=== PATIENT | male | born 2000 | race Caucasian/White ===

== ENCOUNTER 2022-08-30 21:29 | Inpatient (IN) | payer BC, OTHER ==
[2022-08-30 21:58] VITALS: BMI 29.0
[2022-08-30] MEDS ORDERED: METOPROLOL TARTRATE 25 MG TABLET (FP) PO ONE (22:14)
[2022-08-30] MEDS ORDERED: P-EPHED 60MG/TRIPROLIDI 2.5MG TABLET PO PRN (22:15)
[2022-08-30] MEDS ORDERED: NICOTINE 10 MG CARTRIDGE (INHALER) IH PRN (22:15)
[2022-08-30] MEDS ORDERED: POLYETHYLENE GLYCOL (HEALTHYLAX) 3350 17 GM PACKET PO PRN (22:15)
[2022-08-30] MEDS ORDERED: BENZOCAINE/MENTHOL (CHLORASEPTIC ) LOZENGE MM PRN (22:15)
[2022-08-30] MEDS ORDERED: LOPERAMIDE HCL 2 MG CAPSULE PO PRN (22:15)
[2022-08-30] MEDS ORDERED: MELATONIN 5 MG TABLETS PO PRN (22:15)
[2022-08-30] MEDS ORDERED: BISMUTH SUBSALICYLATE 524 MG/30 ML PO PRN (22:15)
[2022-08-30] MEDS ORDERED: ONDANSETRON *ODT* 4 MG TABLET SL PRN (22:15)
[2022-08-30] MEDS ORDERED: DICYCLOMINE HCL 10 MG CAPSULE PO PRN (22:15)
[2022-08-30] MEDS ORDERED: hydrOXYzine PAMOATE 25 MG CAPSULE (FP) PO PRN (22:15)
[2022-08-30] MEDS ORDERED: IBUPROFEN 400 MG TABLET (FP) PO PRN (22:15)
[2022-08-30] MEDS ORDERED: guaiFENesin 600 MG TABLET.ER (FP) PO PRN (22:15)
[2022-08-30] MEDS ORDERED: IBUPROFEN 600 MG TABLET (FP) PO PRN (22:15)
[2022-08-30] MEDS ORDERED: MAGNESIUM HYDROX 2400MG/30ML ORAL SUSPENSION 30 ML CUP PO PRN (22:15)
[2022-08-30] MEDS ORDERED: MAG HYDROX/AL HYDROX/SIMETH 30 ML UNIT-DOSE CUP PO PRN (22:15)
[2022-08-30] MEDS ORDERED: BENZONATATE 200 MG CAPSULE PO PRN (22:15)
[2022-08-30] MEDS ORDERED: ACETAMINOPHEN 325 MG TABLET (FP) PO PRN (22:15)
[2022-08-30] MEDS ORDERED: diazePAM 5 MG TABLET PO PRN (22:17)
[2022-08-30] MEDS ORDERED: diazePAM 5 MG TABLET ONE (22:27)
[2022-08-30] MEDS ORDERED: METOPROLOL TARTRATE 25 MG TABLET (FP) ONE (22:27)
[2022-08-30] MEDS: diazePAM 5 MG TABLET PO SCH (22:47)
[2022-08-31] MEDS: diazePAM 5 MG TABLET PO SCH ×2 (05:37→10:47)
[2022-08-31 09:03] VITALS: BP 121/72; PULSE 97; RESP 17; TEMP 97.9
[2022-08-31] MEDS ORDERED: PRENATAL VITAMINS W/ FOLIC ACID TABLET (FP) PO SCH (10:00)
[2022-08-31] MEDS ORDERED: THIAMINE HCL 100 MG TABLET (FP) PO SCH (22:00)
[2022-09-01] MEDS ORDERED: diazePAM 5 MG TABLET PO SCH (06:00)
[2022-09-02] MEDS ORDERED: diazePAM 5 MG TABLET PO SCH (06:00)
[2022-09-03] MEDS ORDERED: diazePAM 5 MG TABLET PO ONE (06:00)
== END 2022-08-31 11:31 | disposition left against medical advice (07) | DRG 894 ==
LOC: YASAS 21:29 → Y3N 23:08
PROVIDERS: ADMIT Allergy & Immunology; ATTEND Allergy & Immunology
PROC: HZ2ZZZZ Detoxification Services for Substance Abuse Treatment (ICD-10-PCS; principal; 2022-08-30)
DX: F10.230 Alcohol dependence with withdrawal, uncomplicated (principal); F14.20 Cocaine dependence, uncomplicated; F17.290 Nicotine dependence, other tobacco product, uncomplicated; Z28.310 Unvaccinated for COVID-19; Z28.9 Immunization not carried out for unspecified reason
CPT/HCPCS: 87811; C9803-CS; Q0162; U0003; U0005